=== PATIENT | male | born 1935 | race Caucasian/White ===

== ENCOUNTER → 2017-03-04 | Outpatient (CLI) | payer MEDICARE, OTHER ==
--- NOTE | 2017-03-04 09:12 | CT ---
EXAM DESCRIPTION: Abdomen/Pelvis w/wo Contrast (accession [id number]), Chest w/Contrast (accession [id number]) CLINICAL HISTORY: MALIGNANT NEOPLASM OF DESCENDING COLON COMPARISON: CT chest abdomen pelvis June 22, 2016 and a report from a PET scan performed at an outside institution on March 15, 2016. TECHNIQUE: CT of the Chest, Abdomen and Pelvis was performed with IV contrast. This exam was performed according to our departmental dose-optimization program, which includes automated exposure control, adjustment of the mA and/or kV according to patient size and/or use of iterative reconstruction technique. FINDINGS: CT Chest: Thyroid/thoracic inlet: A right-sided Mediport device remains in place without apparent complication. No thyroid nodule or supraclavicular/thoracic inlet adenopathy. Aorta and Pulmonary Artery: No aneurysm, dissection or pulmonary artery dilation. Coronary artery calcifications are noted. Esophagus: No wall thickening or hiatal hernia. Central Airways: Clear. Nodes and Brea: There are a few subthreshold mediastinal lymph nodes, but no mediastinal or hilar adenopathy is identified by CT size criteria. Some of these nonenlarged nodes were hypermetabolic on the patient's previous PET/CT. There are several enlarged right axillary lymph nodes measuring up to 1.6 cm short axis diameter, overall stable from June 22, 2016. No left axillary adenopathy identified. Pericardium and Pleural Spaces: No pleural or pericardial effusion. Lungs: No airspace consolidation or lung mass. There is a 3 mm noncalcified nodule in the mid left lung adjacent to the major fissure which is stable from May,. This was not hypermetabolic on the previous PET/CT. There is subtle focal pleural thickening posteriorly on the left chest wall, stable from previous exams. This was hypermetabolic on the recent PET/CT. There is scarring or atelectasis anteriorly in the left upper lobe, stable. No definite nodular component at this location on today's exam. Breasts/Axillae: Visualized portions normal for sex. Bones/Chest Wall: No chest wall lesion or suspicious lytic/sclerotic bone lesion. CT Abdomen/Pelvis: Aorta and Vessels: No aneurysm, dissection or stenosis. Incidentally noted duplicated IVC. Lymph Nodes, Ascites or Pneumoperitoneum: There is a single borderline enlarged right periaortic lymph node measuring up to 1 cm short axis diameter which was hypermetabolic on previous PET/CT. No additional retroperitoneal or mesenteric adenopathy by CT size criteria. Liver, Gallbladder and Bile Ducts: There is a tiny cyst inferiorly in the right hepatic lobe. No concerning liver mass. The gallbladder is surgically absent. No biliary duct dilation. Spleen and Pancreas: The spleen is slightly enlarged, measuring just under 14 cm in length. This is stable from May,. Normal pancreas. Kidneys, Bladder and Adrenals: Multiple bilateral renal cysts, stable. No adrenal nodule. No bladder wall thickening. Stomach, Small Bowel and Mesentery: No hiatal hernia, dilated small bowel loops, wall or fold thickening or mesenteric inflammation. Colon and Appendix: Again seen is a suture line in the right side of the colon near the splenic flexure without adjacent colonic wall thickening. Is a moderate amount of stool and gas scattered throughout the colon. There is a small amount of fluid posterior to the colon at the level of the splenic flexure which is stable from May,. No internal gas or adjacent inflammation, and this probably represents an exophytic left renal cyst, less likely seroma. Reproductive Organs: Normal. Abdominal Wall: No hernia, mass or inflammation. Bones: No lytic or sclerotic bone lesion. IMPRESSION: Right axillary and borderline retroperitoneal adenopathy, not significantly changed from May, but concerning for metastatic disease. Mild focal pleural thickening posteriorly in the left hemithorax, also stable. This was FDG avid on previous PET scan and metastasis at this location is not excluded. Postoperative changes in the left side of the colon without colonic wall thickening or other evidence of locally recurrent disease. Subsegmental atelectasis or scarring anteriorly in the left upper lobe concerning lung nodule or mass. Splenomegaly, stable. Electronically signed by: Royal Haile MD 03/04/2017 9:11 AM CDT
== END | disposition home or self-care (01) ==
LOC: CT 07:48
PROVIDERS: ATTEND Internal Medicine Hematology & Oncology
DX: C18.6 Malignant neoplasm of descending colon (principal)

== ENCOUNTER → 2017-12-20 | Outpatient (CLI) | payer MEDICARE, OTHER ==
[~2017-12-20] MED LIST: HEPARIN SODIUM 100 U/ML 5 ML SYG IV ONE; SODIUM CHLORIDE 0.9% 1000ML 1,000 ML IVS ONE
--- NOTE | 2017-12-22 12:24 | CT ---
EXAM DESCRIPTION: Abdomen/Pelvis w/wo Contrast: Computed Tomography. CLINICAL HISTORY: MALIGNANT NEOPLASM OF DESCENDING COLON COMPARISON: CT abdomen and pelvis 09/28/2016. Chest CT scan with contrast on this visit. TECHNIQUE: Spiral-axial scans at 5.0 mm intervals through the abdomen and pelvis, after nonionic IV contrast. No oral contrast. Coronal and sagittal 2.0 mm reconstructions. Delayed scans, liver through the pelvis. Axial-spiral 5mm. No adverse reactions. Total Exam DLP: 2585.88 mGy-cm. This exam was performed according to our departmental dose-optimization program which includes automated exposure control, adjustment of the mA and/or kV according to patient size and/or use of iterative reconstruction technique; to reduce radiation dose to as low as reasonably achievable (ALARA). FINDINGS: Lung bases and pleura: Focal pleural thickening bilaterally. Coronary artery calcifications and stents.. Liver, Stomach, Spleen, Adrenal Glands: 1 cm nonenhancing subcapsular lesion lateral inferior right hepatic lobe. Hounsfield density +18. No enhancement or calcification. Pancreas, Gallbladder, Ducts: Surgical clips gallbladder fossa with no fluid. Dilated common bile duct. Pancreas negative. Kidneys and Ureters: Multiple fluid density masses bilateral kidneys. Largest in the right kidney is 5.7 cm. Largest in the left kidney 7.7 cm. No enhancing munoz or calcifications. No renal stones hydronephrosis or perinephric stranding. Mesentery: Chronic fascial thickening with no new stranding. No ascites or free fluid in the pelvis. Aorta: Moderate atherosclerotic calcification and ectasia. Maximum diameter 2.6 cm transverse. Atherosclerosis of the ostia of the major vessels originating from the aorta. No periaortic mass or contrast. Small Bowel: Gas in the proximal small bowel fluid distally no distention. No air-fluid levels. Terminal Ileum/Cecum: Normal caliber. Appendix not seen. Normal density of the surrounding fat. Colon: Fecal matter proximally gas in the transverse colon. Anastomosis of the descending colon. Postsurgical changes with less fascial thickening compared to the prior study. Blind loop of colon is stable. No definite mass or abnormal enhancement. No obstruction. Pelvic Organs: Urinary bladder distended with no stones. Prostate gland impressing on the base of the urinary bladder and the seminal vesicles. No fluid in the anterior peritoneal reflection. Vascular calcifications. Spine and Bony Pelvis: Transitional lumbosacral vertebra designated lumbarized S1 segment according to this examination of the inferior rib pair as 12th ribs. L5-S1 disc space narrowing spondylosis and trace anterolisthesis. Some mild spondylosis L3-4 and L5-S1. Overall bone density decreased. Spondylosis thoracic spine. Levoscoliosis lumbar spine. No bone destruction. Degenerative changes bilateral acetabula with narrowing of the hip joints. Bilateral SI joint degeneration. Abdominal Wall/Back Soft Tissues: Right fatty inguinal hernia not containing bowel. Minimal diastases at the umbilicus midline but not containing bowel. IMPRESSION: 1. Descending colon anastomosis at prior resection site for malignancy. Blind loop at resection site is stable. No obstruction no mass. Decreased fascial thickening. 2. Multiple renal cyst stable. Hepatic right lobe cysts stable with no new focal lesions. No peritoneal or retroperitoneal masses no ascites or free fluid. 3. Aortic atherosclerotic changes and ectasia are stable. Stable right fatty inguinal hernia without bowel involvement. 4. Thoracolumbar spondylosis and scoliosis are stable. Also stable bilateral acetabular arthrosis. Electronically signed by: Daniel Gaitan MD 12/22/2017 12:23 PM [facility]
--- NOTE | 2017-12-22 12:36 | CT ---
EXAM DESCRIPTION: Chest w/Contrast : Computed Tomography. CLINICAL HISTORY: MALIGNANT NEOPLASM OF DESCENDING COLON COMPARISON: CT chest with contrast 2016. TECHNIQUE: Spiral-axial scans at 5.0 mm intervals through the lungs and thorax with IV contrast. 2.5 mm lung algorithm axial reconstructions. Coronal and sagittal 2.0 Mm reconstructions. No adverse reactions. This exam was performed according to our departmental dose-optimization program which includes automated exposure control, adjustment of the mA and/or kV according to patient size and/or use of iterative reconstruction technique; to reduce radiation dose to as low as reasonably achievable (ALARA). FINDINGS: Bilateral focal areas of pleural thickening. Minimal stranding in the inferior left lower lobe. No abnormal nodules bilaterally no infiltrates pleural effusion or pneumothorax. Heterogeneous enhancement of the thyroid gland. No soft tissue masses in the base of the neck. No adenopathy in the axillary region. Small nodes in the mediastinum and hilar areas. Coronary artery calcifications. VAD tip proximal superior vena cava. Diffuse thoracic kyphosis narrowed disc spaces and calcified disc spaces. No bone destruction. Advanced arthrosis bilateral glenohumeral joints. IMPRESSION: Senescent changes in the lungs with no abnormal nodules or masses. No mediastinal axillary or hilar adenopathy or soft tissue masses. Stable appearance compared to the prior study February 2017. Electronically signed by: Daniel Gaitan MD 12/22/2017 12:35 PM [facility] Workstation: [id number]
== END ==
LOC: CT 07:58
PROVIDERS: ATTEND Internal Medicine Hematology & Oncology
DX: C18.6 Malignant neoplasm of descending colon (principal); Z98.0 Intestinal bypass and anastomosis status; Z97.8 Presence of other specified devices
CPT/HCPCS: 36415; 71260; 74178; 82565; 84520; J1642

== ENCOUNTER → 2019-01-05 | Outpatient (CLI) | payer MEDICARE, OTHER ==
--- NOTE | 2019-01-05 12:10 | CT ---
EXAM DESCRIPTION: Chest w/wo Contrast CLINICAL HISTORY: 83 years Male, MALIGNANT NEOPLASM OF DESCENDING COLON COMPARISON: CT of the thorax December 20, 2017. CT of the chest March 04, 2017. CT abdomen pelvis December 20, 2017. Visualized upper abdomen is stable in appearance. TECHNIQUE: Pre and postcontrast multidetector CT imaging of the thorax was performed. Multiple reconstructions were generated. This exam was performed according to our departmental dose-optimization program which includes automated exposure control, adjustment of the mA and/or kV according to patient size and/or use of iterative reconstruction technique. FINDINGS: Trachea and proximal bronchi are patent. No endobronchial lesions are demonstrated. Occasional secretions noted within the trachea. Occasional intrapulmonary lymph nodes are present. No concerning pulmonary nodules. No acute airspace disease. No pleural thickening or pleural calcifications are evident. The heart size is within normal limits. Great vessels are normal in caliber. No mediastinal hilar lymphadenopathy is present. Dense coronary vascular calcifications are present indicating high likelihood for significant coronary vascular disease. Right chest wall Mediport via right internal jugular approach in satisfactory position. Diffuse idiopathic skeletal hyperostosis. Ankylosing spondylitis within the differential. 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 Advanced osteoarthritis of the contralateral right glenohumeral joint. IMPRESSION: No evidence for primary or metastatic disease. Moderate vascular disease. Diffuse idiopathic skeletal hyperostosis versus ankylosing spondylitis. 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 Electronically signed by: Charlie Salinas MD 01/05/2019 12:08 PM [employer]
== END ==
LOC: LAB.O 09:02
PROVIDERS: ATTEND Internal Medicine Hematology & Oncology
DX: C18.6 Malignant neoplasm of descending colon (principal); M19.012 Primary osteoarthritis, left shoulder; I99.9 Unspecified disorder of circulatory system